=== PATIENT | male | born 1995 | race Caucasian/White ===

== ENCOUNTER 2024-04-23 00:41 | Emergency (ER) | payer BC, SELFPAY ==
[2024-04-23 00:47] VITALS: BP 134/84
[2024-04-23 00:56] VITALS: BMI 27.3
[2024-04-23 01:03] VITALS: BP 122/76
[2024-04-23 01:17] LABS: % Eosinophils 2.1 % (0-6); % Immature Granulocytes 0.2 % (0-0.5); % Lymphocytes 26.8 % (20.5-51.1); % Monocytes 9.6 % (1.7-9.3); % Neutrophils 60.3 % (42.2-75.2); Absolute Basophils 0.1 10^3/uL (0-0.2); Absolute Eosinophils 0.1 10^3/uL (0-0.7); Absolute Lymphocytes 1.5 10^3/uL (1.2-3.4); Absolute Monocytes 0.6 10^3/uL (0.1-0.6); Absolute Neutrophils 3.5 10^3/uL (1.4-6.5); Hematocrit 39.9 % (39.0-52.0); Hemoglobin 14.2 g/dL (13.0-18.0); Mean Corp Hgb Conc. 35.6 g/dL (33.0-37.0); Mean Corpuscular Volume 84.2 fL (80.0-94.0); Mean Platelet Volume 9.7 fL (7.4-10.4); Nucleated Red Blood Cells % 0 % (-); Platelet Count 200 10^3/uL (130-400); Red Blood Cell Count 4.74 10^6/uL (4.70-6.10); Red Cell Dist. Width 11.7 % (11.5-14.5); White Blood Cell Count 5.7 10^3/uL (4.8-10.8)
--- NOTE | 2024-04-23 01:28 | ED.GENMED ---
History of Present Illness
General
Chief Complaint: Chest Pain
Source: patient
Exam Limitations: none
Time Seen by Provider: 04/23/24 01:01
History of Present Illness
History of Present Illness:
This is a 28 year old male that comes in with c/o left sided upper chest pain. States that he was riding home on the train and he started with chest pain. Sates that he got off in [place] and his pain continued. States that the pain started at 6pm
and has been coming and going. States that his pain at this time is a 3-4/10. Denies any fever, chills, SOB, cough, abd pain, nausea, vomiting diarrhea, headache, dizziness, urinary burning.
Past History
Past History
ED Past Medical History: None; Negative Asthma, HTN, Hypercholesterolemia or NIDDM
ED Past Surgical History: Orthopedic (Bilateral knee surgery, Right orbital surgery)
Social History
Tobacco: Vaping
Alcohol: Occasional
Personal: Single
Living: alone
Employment: Employed
Review of Systems
Review of Systems
All Other Systems: ROS reviewed and negative except as documented in HPI and ROS
Constitutional: Reports no symptoms; Denies fever or chills
EENT: Reports no symptoms
Respiratory: Denies cough or trouble breathing
Cardiac: Reports chest pain
ABD/GI: Reports no symptoms; Denies abdominal pain, nausea, vomiting or diarrhea
: Reports no symptoms; Denies dysuria, frequency or urgency
Musculoskeletal: Reports no symptoms
Skin: Reports no symptoms
Neurological: Reports no symptoms; Denies dizzy or headache
Psychiatric: Reports no symptoms
Phy Exam
General Physical Exam
General Presentation: no apparent distress
General age: appears stated age
General Skin: warm and dry
General Habitus: normal
General Mental: alert
General Hydration: appears well hydrated
ENT Exam
ENT Exam: TM's normal, pharynx normal and neck supple
Eye Exam
Eye Exam: EOMI
Cardiovascular Exam
Cardiovascular Exam: regular rate/rhythm, no edema, no murmur, normal peripheral pulses and other (Pain is reproducible with palpation. )
Pulmonary Exam
Pulmonary Exam: lungs clear, no respiratory distress, no rales, chest non tender, no crackles, no rhonchi, no wheezing and no cough
Gastrointestinal Exam
Gastrointestinal Exam: normal bowel sounds, non tender, soft, no organomegaly, no pulsatile mass and non distended
Musculoskeletal Exam
Musculoskeletal Exam: full ROM and no edema
Skin Exam
Skin Exam: normal color, warm/dry, no rash and no petechia
Psychiatric Exam
Psychiatric Exam: normal mood/affect
Scores
Heart Score for Chest Pain Patients
STEMI patient?: No
History: Slightly or Non-Suspicious
ECG: Normal
Age: </= 45 years
Risk Factors: No Risk Factors
Troponin: </= Normal Limit
Heart Score for Chest Pain Patients: 0
Heart Score Risk: 2.5% MACE over next 6 weeks
Course
Orders/Labs/Results
Orders:
Orders
04/23/24 00:42
ECG [Electrocardiogram (*1)] Urgent
Reason for Study: Chest Pain
EKG- Treatment ONCE
04/23/24 01:10
Complete Blood Count/With Diff Urgent
Comprehensive Metabolic Panel Urgent
Troponin I Urgent
04/23/24 01:25
EKG- Treatment ONCE
CR Chest - 2 Views Urgent
Comment:
Reason For Exam: Chest pain
04/23/24 01:34
Ketorolac [Toradol] 30 mg IV NOW STA
04/23/24 04:10
Electrocardiogram (*1) Urgent
Reason for Study: Chest Pain
Other Reason for Exam: Repeat with Troponin
04/23/24 04:13
Troponin I Urgent
Abnormal Lab Results
04/23/24
01:10
Monocytes % 9.6 H %
(1.7-9.3)
04/23/24 01:10
04/23/24 01:10
Labs unremarkable. troponin <0.012
Second troponin <0.012
Vital Signs
Initial and Last Documented VS:
Initial Vital Signs
Temp Pulse Resp BP Pulse Ox
98.0 F 74 18 134/84 99
04/23/24 00:47 04/23/24 00:47 04/23/24 00:47 04/23/24 00:47 04/23/24 00:47
Last Documented Vital Signs
Temp Pulse Resp BP Pulse Ox
98.0 F 77 24 122/72 99
04/23/24 00:47 04/23/24 05:00 04/23/24 05:00 04/23/24 05:00 04/23/24 05:00
MDM/Problems Addressed
Differential Diagnosis Includes:
Coronary syndrome. Musculoskeletal.
MDM/Problems Addressed:
This is a 28 year old male that comes in with c/o left upper chest pain. States that this has been on and off since 6pm.
Will check labs, ECG, and chest x-ray. Will medicate for pain.
Back into see patient. Explained that his blood work is normal along with his chest x-ray and first troponin. Patient states that his pain is gone. Explained that this may be musculoskeletal in nature but the fact that it was on and off since 6pm
will get Second Troponin.
Chronic conditions affecting care:
NA
Acute Exacerbation and/or Progression of Chronic Illness:
NA
*Radiology
Radiology exam reviewed: preliminary read by ED provider (Chest- Negative for active cardiopulmonary disease. )
*Pulse Oximetry
Patient hypoxic: no
*EKG
Interpreted by ED Provider?: Yes
Heart Rate: 73
Rate: normal
Rhythm: sinus
Pinson: normal axis
Interval: normal interval
QRS Pattern: normal QRS
Ischemia: no ischemia
*[employer] Interpretation
Rate: normal
Heart Rate: 79
*Critical Care Note
Total Time (30-74mins, 75-104mins- exclusive of procedures): Not Applicable
ED Attending Note
-
Portions of this chart may have been created with voice recognition software.� Occasional wrong word or��sound alike� substitutions may have occurred due to the inherent limitations of voice recognition software.
Discharge Plan
Departure
Patient Disposition: Home (Routine Discharge)
Date of Disposition: 04/23/24
Time of Disposition: 05:00
Patient with high blood pressure during this ER visit?: Yes
Condition: Good
Covid-19: Not Applicable
Discharge Problem:
Musculoskeletal chest pain, Chest pain
Instructions: Chest Pain, Adult ED, Chest Pain PCP Follow Up, BLOOD PRESSURE
Prescriptions:
No Action
No Current Medications
0
Referrals:
NONE,* [Family Provider] -
Activity Restrictions/Additional Instructions:
As discussed, your blood work is normal along with your ECG. Please use Ibuprofen 600mg every 6 hours for the next 2-3 days to help with pain control. This is most likely Musculoskeletal pain as you can reproduce the pain with palpation. Follow up
with the family doctor for recheck in the next 2-3 days. . IF YOU HAVE INCREASED OR CHANGING PAIN, OR YOU HAVE ANY OTHER CONCERNS PLEASE RETURN TO THE EMERGENCY ROOM.
Interventions
Interventions:
*Risk Screen - Suicide Last Done: 04/23/24 01:00
*General Assessment Last Done: 04/23/24 01:00
*Neglect/Abuse Screening Last Done: 04/23/24 01:00
ED- Fall Risk Assessment Last Done: 04/23/24 05:00
*ED COVID-19 Vaccine History Last Done: 04/23/24 00:59
*Nursing Disposition Last Done: 04/23/24 05:00
ED- Cardiac Assessment Last Done: 04/23/24 04:10
Discharge Date and Time
Discharge Date/Time: 04/23/24 05:00
Print Language: [id number]
[2024-04-23 01:32] LABS: ALT (SGPT) 21 U/L (0-50); AST (SGOT) 23 U/L (17-59); Alkaline Phosphatase 44 U/L (38-126); Blood Urea Nitrogen 14 mg/dl (9-20); Calcium 9.7 mg/dl (8.4-10.2); Carbon Dioxide 27 mmol/L (22-30); Chloride 102 mmol/L (98-107); Estimated Creatinine Clearance > 125 ml/min; Glucose 80 mg/dl (70-99); Potassium 3.9 mmol/L (3.5-5.1); Sodium 141 mmol/L (135-145); Total Bilirubin 0.3 mg/dl (0.2-1.3); Total Protein 7.2 g/dl (6.3-8.2); eGFR > 60.00
[2024-04-23 01:40] LABS: Troponin I < 0.012 ng/ml
[2024-04-23 02:00] VITALS: BP 131/77
[2024-04-23] MEDS: TORADOL 30 MG IV (02:10)
[2024-04-23 03:00] VITALS: BP 113/73
[2024-04-23 04:00] VITALS: BP 123/79
[2024-04-23 04:52] LABS: Troponin I < 0.012 ng/ml
[2024-04-23 05:00] VITALS: BP 122/72
== END 2024-04-23 05:00 | disposition home or self-care (01) ==
LOC: EMR 00:41
PROVIDERS: Clinical Nurse Specialist Family Health; EMERGENCY PHYSICIAN Emergency Medicine
DX: R07.89 Other chest pain (principal); F17.290 Nicotine dependence, other tobacco product, uncomplicated
CPT/HCPCS: 99283; 96374; 71046; 80053; 84484; 85025; 93005